=== PATIENT | male | born 1990 | race Two or more races ===

== ENCOUNTER 2023-09-09 10:40 | Emergency (ER) | payer OTHER ==
[~2023-09-09] VITALS: Ht 170.2 cm; Wt 63.5 kg
[2023-09-09] MEDS ORDERED: CEPHALEXIN500 MG PO (13:47)
== END 2023-09-09 13:54 | disposition home or self-care (01) ==
LOC: ER 10:41
DX: S62.662A Nondisplaced fracture of distal phalanx of right middle finger, initial encounter for closed fracture (principal); W22.8XXA Striking against or struck by other objects, initial encounter

== ENCOUNTER 2023-09-30 10:16 | Emergency (ER) | payer OTHER ==
[~2023-09-30] VITALS: Ht 170.2 cm; Wt 63.0 kg
[~2023-09-30 10:16] MED LIST: CEPHALEXIN500 MG PO
[2023-09-30] MEDS ORDERED: ACETAMINOPHEN 500 MG GEL..CAP PO ONE ×2 (12:45→13:38)
[2023-09-30 13:52] LABS: HEMATOCRIT 42.7 % (39.0-48.0); HEMOGLOBIN 14.4 g/dL (13-16.00); MEAN CELL VOLUME 86.8 fL (80.0-100.00); MEAN CORPUSCULAR HEMOGLOBIN 29.3 pg (27.00-32.0); MEAN CORPUSCULAR HGB CONC 33.8 g/dl (32.0-36.0); PLATELET COUNT 177 K/uL (150-450); RED BLOOD COUNT 4.92 M/uL (4.00-6.00); RED CELL DISTRIBUTION WIDTH 13.2 % (11.5-14.5)
[2023-09-30 14:17] LABS: ALBUMIN 4.4 gm/dL (3.4-5.0); BILIRUBIN TOTAL 0.51 mg/dL (0.3-1.2); CALCIUM 9.1 mg/dL (8.5-10.1); CREATININE SERUM 1.06 mg/dL (0.70-1.30); GFR 81.49; GLOBULINA 3.8 G/DL (2.4-3.5); POTASSIUM 3.88 mEq/L (3.5-5.1); TOTAL PROTEIN 8.2 gm/dL (6.4-8.2)
[2023-09-30 14:47] LABS: URINE APPEARANCE Clear; URINE BILIRRUBIN Negative (NEGATIVE); URINE BLOOD Small; URINE COLOR Yellow; URINE GLUCOSE Negative (NEGATIVE); URINE LEUKOCYTE Negative; URINE NITRATE Negative; URINE PROTEIN Negative (NEGATIVE); URINE UROBILINOGEN 0.2 E.U./dl
[2023-09-30 14:51] LABS: URINE RBC 11.9 uL (0.0-20.8); URINE WBC 2.1 uL (0.0-23.2)
[2023-09-30 14:55] LABS: URINE BACTERIA 0 uL (0.0-1933); URINE EPITHELIAL CELLS 0.9 uL (0.0-38.8)
== END 2023-09-30 15:44 | disposition home or self-care (01) ==
LOC: ER 10:17
PROVIDERS: Nurse Practitioner Family
DX: B34.9 Viral infection, unspecified (principal); R50.9 Fever, unspecified

== ENCOUNTER 2023-10-01 21:25 | Emergency (ER) | payer OTHER ==
[~2023-10-01] VITALS: Ht 167.6 cm; Wt 77.1 kg
[2023-10-02] MEDS ORDERED: FAMOtidine 10 MG/ML (4ML VIAL) IV PUSH STA (00:02)
[2023-10-02] MEDS ORDERED: FAMOtidine 200mg/20ml VIAL ONE (00:13)
[2023-10-02] MEDS ORDERED: HYOSCYAMINE SULFATE 0.125 MG TAB.SUBL ONE (00:13)
[2023-10-02] MEDS ORDERED: HYOSCYAMINE SULFATE 0.125 MG TAB.SUBL SL ONE (00:15)
[2023-10-02 01:32] LABS: HEMATOCRIT 43.1 % (39.0-48.0); HEMOGLOBIN 14.8 g/dL (13-16.00); MEAN CELL VOLUME 85.6 fL (80.0-100.00); MEAN CORPUSCULAR HEMOGLOBIN 29.3 pg (27.00-32.0); MEAN CORPUSCULAR HGB CONC 34.2 g/dl (32.0-36.0); PLATELET COUNT 148 K/uL (150-450); RED BLOOD COUNT 5.03 M/uL (4.00-6.00); RED CELL DISTRIBUTION WIDTH 13.1 % (11.5-14.5)
[2023-10-02 01:55] LABS: ALBUMIN 4.3 gm/dL (3.4-5.0); BILIRUBIN TOTAL 0.59 mg/dL (0.3-1.2); CREATININE SERUM 1.09 mg/dL (0.70-1.30); GFR 78.9; GLOBULINA 3.9 G/DL (2.4-3.5); POTASSIUM 3.64 mEq/L (3.5-5.1); TOTAL PROTEIN 8.2 gm/dL (6.4-8.2)
[2023-10-02] MEDS ORDERED: MIRALAX510 GM PO (04:11)
[2023-10-02] MEDS ORDERED: DOLOGESIC-DF 51 EACH PO (04:11)
== END 2023-10-02 04:27 ==
LOC: ER 21:25
DX: A92.8 Other specified mosquito-borne viral fevers (principal); K59.00 Constipation, unspecified